=== PATIENT | male | born 1960 | race Caucasian/White ===

== ENCOUNTER 2016-12-08 09:32 | Inpatient (IN) | payer OTHER ==
[2016-12-08 10:07] VITALS: BMI 22.6
--- NOTE | 2016-12-08 10:57 | HP ---
COWS - Scale Resting Pulse: 0= [place] 80 or Below Sweatin= Chills/Flushing Restless Observation: 0= Sits Still Pupil Size: 0= Normal to Room Light Bone or Joint Aches: 1= Mild Discomfort Runny Nose/ Eye Tearin= Nasal Congestion GI Upset > 30mins: 1= Stomach Cramp Tremor Observation: 1= Tremor [place], Not Seen Yawning Observation: 1= 1-2x During Session Anxiety or Irritability: 1=Feels Anxious/Irritable Goose Flesh Skin: 0=Smooth Skin COWS Score: 7 CIWA Score - CIWA Score Nausea/Vomitin-Mild Nausea/No Vomiting Muscle Tremors: 3 Anxiety: 4-Mod. Anxious/Guarded Agitation: 1-Slight > Activity Paroxysmal Sweats: 1-Minimal Palms Moist Orientation: 1-Uncertain about Date Tacttile Disturbances: 1-Very Mild Itch/Numbness Auditory Disturbances: 1-Very Mild Visual Disturbances: 1-Very Mild Sensitivity Headache: 1-Very Mild CIWA-Ar Total Score: 15 Admission ROS [facility] - HPI Chief Complaint: I want to get off drugs, I can't get my hepatitis C treated until my urine is clean Allergies/Adverse Reactions: Allergies Allergy/AdvReac Type Severity Reaction Status Date / Time Pork/Porcine Containing Allergy Unknown NO PORK Verified 12/08/16 11:31 Products [Pork/Porcine Product Derivatives] No Known Drug Allergies Allergy Verified 12/08/16 11:31 History of Present Illness: 56 yo gentleman here for detox from opiates, benzodiazepine and alcohol - last detox at [facility] two months ago, states had overdose about a month ago, last here for detox May 2016. No seizures. States he tried subxone but never went back for dose adjustment. Exam Limitations: Clinical Condition - Ebola screening Have you traveled outside of the country in the last 21 days: No Have you had contact with anyone from an Ebola affected area: No Have you been sick,other than usual withdrawal symptoms: No Do you have a fever: No - Review of Systems Constitutional: Loss of Appetite, Changes in sleep, Weakness EENT: reports: Nose Congestion, Other (reports chewing problems due to past jaw surgery) Respiratory: reports: No Symptoms reported Cardiac: reports: No Symptoms Reported GI: reports: Nausea, Poor Appetite : reports: No Symptoms Reported Musculoskeletal: reports: Muscle Pain Integumentary: reports: No Symptoms Reported Neuro: reports: Headache Endocrine: reports: No Symptoms Reported Hematology: reports: No Symptoms Reported Psychiatric: reports: Judgement Intact, Mood/Affect Appropiate, Anxious Other Systems: Reviewed and Negative Patient History - Patient Medical History Hx Anemia: No Hx Asthma: No Hx Chronic Obstructive Pulmonary Disease (COPD): No Hx Cancer: No Hx Cardiac Disorders: No Hx Congestive Heart Failure: No Hx Hypertension: No Hx Hypercholesterolemia: No Hx Pacemaker: No HX Cerebrovascular Accident: No Hx Seizures: No Hx Dementia: No Hx Diabetes: No Hx Gastrointestinal Disorders: No Hx Liver Disease: Yes (hep C) Hx Genitourinary Disorders: No Hx Sexually Transmitted Disorders: No Hx Renal Disease (ESRD): No Hx Thyroid Disease: No Hx Human Immunodeficiency Virus (HIV): No Hx Hepatitis C: Yes (no treatment) Hx Depression: Yes (seroquel 200mg bid,celexa 20mg,abilify 10mg hs) Hx Suicide Attempt: No Hx Bipolar Disorder: Yes Hx Schizophrenia: No - Patient Surgical History Past Surgical History: Yes Hx Neurologic Surgery: No Hx Cataract Extraction: No Hx Cardiac Surgery: No Hx Lung Surgery: No Hx Breast Surgery: No Hx Breast Biopsy: No Hx Abdominal Surgery: No Hx Appendectomy: No Hx Cholecystectomy: No Hx Genitourinary Surgery: No Hx Section: No Hx Orthopedic Surgery: Yes (broken jaw-06/2011) Anesthesia Reaction: No - PPD History Previous Implant?: Yes Documented Results: Negative w/proof Date: 05/13/16 Results: 0 mm PPD to be Administered?: No - Reproductive History Patient is a Female of Child Bearing Age (11 -55 yrs old): No (male) - Smoking Cessation Smoking history: Current every day smoker Have you smoked in the past 12 months: Yes Aproximately how many cigarettes per day: 10 Cigars Per Day: 0 Hx Chewing Tobacco Use: No Initiated information on smoking cessation: Yes 'Breaking Loose' booklet given: 12/08/16 (give on floor) - Substance & Tx. History Hx Alcohol Use: Yes Hx Substance Use: Yes Substance Use Type: Alcohol, Cocaine, Heroin, Opiates, Tranquilizers Hx Substance Use Treatment: Yes (detox, rehab, hx methadone in past) - Substances Abused Heroin Route: Injection Frequency: Daily Amount used: 15 bags Age of first use: 21 Date of Last Use: 12/07/16 Alprazolam (Xanax) Route: Oral Frequency: Daily Amount used: two 4 mg sticks Age of first use: 19 Date of Last Use: 12/06/16 Non-Rx Methadone Route: Oral Frequency: 1-2 times per week Amount used: 10mg Age of first use: 29 Date of Last Use: 12/05/16 alcohol Route: Oral Frequency: 1-2 times per week Amount used: one six back 16 oz beer Age of first use: 29 Date of Last Use: 12/07/16 Family Disease History - Family Disease History Family Disease History: Diabetes: Mother (), Other: Father (living, etoh ), Mother, Brother (two living - one drinks), Sister (two living - one drinks), Son (one adult - healthy) Admission Physical Exam [facility] - Vital Signs Vital Signs: Vital Signs - 24 hr 12/08/16 10:04 Temperature 95.3 F L Pulse Rate 65 Respiratory 18 Rate Blood Pressure 152/94 - Physical General Appearance: Yes: Nourished, Appropriately Dressed, Mild Distress HEENTM: Yes: Hearing grossly Normal, Normocephalic, Normal Voice, Pharynx Normal , Other (c/o jaw misalignment due to history of surgery) Respiratory: Yes: Normal Breath Sounds, No Respiratory Distress Neck: Yes: No masses,lesions,Nodules, Supple Breast: Yes: Breast Exam Deferred Cardiology: Yes: Regular Rhythm, Bradycardia Abdominal: Yes: Flat, Soft Genitourinary: Yes: Frequency Back: Yes: Normal Inspection Extremities: Yes: Normal Inspection, Normal Range of Motion, Non-Tender Neurological: Yes: Alert, Normal Mood/Affect, Normal Response Integumentary: Yes: Normal Color, Warm, Track Gandhi (right arm - no erythema) Lymphatic: Yes: Within Normal Limits - Diagnostic (1) Alcohol dependence Current Visit: Yes Status: Chronic (2) Hepatitis C Current Visit: Yes Status: Chronic Qualifiers: Viral hepatitis chronicity: chronic Hepatic coma status: without hepatic coma Qualified Code(s): B18.2 - Chronic viral hepatitis C (3) Nicotine dependence Current Visit: Yes Status: Chronic Qualifiers: Nicotine product type: cigarettes Substance use status: uncomplicated Qualified Code(s): F17.210 - Nicotine dependence, cigarettes, uncomplicated (4) Opioid dependence with withdrawal Current Visit: Yes Status: Chronic (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 - Detox or Rehab [facility] Level of Care: Medically Managed Detox Regimen/Protocol: Methadone/Valium [facility] Breath Alcohol Content Breath Alcohol Content: 0 Urine Drug Screen - Results Drug Screen Negative: No Urine Drug Screen Results: JOSUE-Cocaine, OPI-Opiates, BZO-Benzodiazepines, MTD- Methadone
[2016-12-08] MEDS ORDERED: MAGNESIUM HYDROX 2400MG/30ML ORAL SUSPENSION 30 ML CUP PO PRN (11:07)
[2016-12-08] MEDS ORDERED: hydrOXYzine PAMOATE 50 MG CAPSULE (FP) PO PRN (11:07)
[2016-12-08] MEDS ORDERED: MAG HYDROX/AL HYDROX/SIMETH 30 ML UNIT-DOSE CUP PO PRN (11:07)
[2016-12-08] MEDS ORDERED: IBUPROFEN 400 MG TABLET (FP) PO PRN (11:07)
[2016-12-08] MEDS ORDERED: MAGNESIUM CITRATE 300 ML BOTTLE PO PRN (11:07)
[2016-12-08] MEDS ORDERED: P-EPHED 60MG/TRIPROLIDI 2.5MG TABLET PO PRN (11:07)
[2016-12-08] MEDS ORDERED: ACETAMINOPHEN 325 MG TABLET (FP) PO PRN (11:07)
[2016-12-08] MEDS ORDERED: NICOTINE POLACRILEX 4 MG GUM BUC PRN (11:07)
[2016-12-08] MEDS ORDERED: guaiFENesin/D-METHORPHAN HB 10 ML UNIT-DOSE CUPS PO PRN (11:07)
[2016-12-08] MEDS ORDERED: LOPERAMIDE HCL 2 MG CAPSULE PO PRN (11:07)
[2016-12-08] MEDS ORDERED: MENTHOL/PHENOL 1 EACH UD MM PRN (11:07)
[2016-12-08] MEDS ORDERED: METHADONE HCL 10 MG TABLET (FOR DETOX USE ONLY) PO ONE ×2 (13:00→23:00)
[2016-12-08] MEDS ORDERED: diazePAM 5 MG TABLET PO ONE (13:00)
[2016-12-08] MEDS: diazePAM 5 MG TABLET PO SCH ×2 (15:01→22:32)
[2016-12-08] MEDS: diazePAM 5 MG TABLET PO PRN (17:49)
[2016-12-08] MEDS: THIAMINE HCL 100 MG TABLET (FP) PO SCH (22:32)
[2016-12-09] MEDS: diazePAM 5 MG TABLET PO SCH ×3 (06:06→22:10)
[2016-12-09 07:33] LABS: URINE APPEARANCE CLEAR; URINE BILIRUBIN NEGATIVE (NEGATIVE); URINE BLOOD NEGATIVE (NEGATIVE); URINE COLOR YELLOW; URINE GLUCOSE (UA) NEGATIVE (NEGATIVE); URINE KETONE NEGATIVE (NEGATIVE); URINE LEUK ESTERASE NEGATIVE (NEGATIVE); URINE NITRITE NEGATIVE (NEGATIVE); URINE PROTEIN NEGATIVE (NEGATIVE); URINE UROBILINOGEN NEGATIVE mg/dL (0.2-1.0)
--- NOTE | 2016-12-09 09:15 | CONSULT ---
[facility] Psychiatric Consult - Data Date of interview: 12/09/16 Admission source: [facility] Identifying data: Mr Sesay is a 56 years old single male, father of a 32 years old son, unemployed on food [employer], homeless seeking detox treatment for alcohol, heroin, methadone and xanax Substance Abuse History: Reports history of alcohol heroin, methadone and xanax use. He started using xanax at age 19, heroin at 21, alcohol and methadone at 29 , consumes 15 bags of heroin and 8 mg of xanax daily and a 6pk of beer and 10 mg of methadone 1-2 times weekly. Last used methadone on 12/05/16, xanax on , alcohol & heroin on 12/07/16 Medical History: Significant for hepatitis c and history of surgery for fracture jaw in 2011. smokes 10 cigarettes daily Psychiatric History: Patient is an unreliable historian providing inconsistent information. Denies previous psychiatric treatment to lyric writer at this admission and to Dr Lockhart on a previous admission in May 2016. 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 These medications were ordered for him and he was discharged on them. EDGARhen seen by Dr Lockhart recently , He requested Seroquel for insomnia and Seroquel 100 mg po HS was ordered for him. Now requests Seroquel 200 mg po HS But he was told that he cannot take more than 100 mg since he has been on it since he was discharged last May. At present, reports feeling depressed and sleeping poorly Physical/Sexual Abuse/Trauma History: Denies verbal, physical or sexual abuse as wel as DV relationship Additional Comment: Reports history of multiple arrests including 2 felony convoctions. Denies being on parole/probatiom currently Mental Status Exam - Mental Status Exam Alert and Oriented to: Time, Place, Person Cognitive Function: Fair Patient Appearance: Well Groomed Mood: Depressed Affect: Appropriate Patient Behavior: Cooperative Speech Pattern: Clear Voice Loudness: Normal Thought Process: Intact Thought Disorder: Not Present Hallucinations: Denies Suicidal Ideation: Denies Homicidal Ideation: Denies Insight/Judgement: Fair Sleep: Poorly Appetite: Poor Muscle strength/Tone: Normal Gait/Station: Normal Psychiatric Findings - Problem List ([place] 1, 2,3) (1) Substance induced mood disorder Current Visit: No Status: Acute (2) Bipolar II disorder Current Visit: No Status: Ruled-out (3) Alcohol dependence Current Visit: Yes Status: Chronic (4) Opioid dependence with withdrawal Current Visit: Yes Status: Chronic (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 (6) Nicotine dependence Current Visit: Yes Status: Chronic Qualifiers: Nicotine product type: cigarettes Substance use status: uncomplicated Qualified Code(s): F17.210 - Nicotine dependence, cigarettes, uncomplicated; F17.210 - Nicotine dependence, cigarettes, uncomplicated (7) Hepatitis C Current Visit: Yes Status: Chronic Qualifiers: Viral hepatitis chronicity: chronic Hepatic coma status: without hepatic coma Qualified Code(s): B18.2 - Chronic viral hepatitis C; B18.2 - Chronic viral hepatitis C; B18.2 - Chronic viral hepatitis C; B18.2 - Chronic viral hepatitis C - Initial Treatment Plan Initial Treatment Plan: 1) Start Seroquel 100 mg po HS. 2) Continue inpatient detoxification
--- NOTE | 2016-12-09 09:59 | EKG ---
Test Reason : Blood Pressure : / mmHG Vent. Rate : 060 BPM Atrial Rate : 060 BPM P-R Int : 184 ms QRS Dur : 084 ms QT Int : 442 ms P-R-T Axes : 069 065 071 degrees QTc Int : 442 ms NORMAL SINUS RHYTHM NORMAL ECG WHEN COMPARED WITH ECG OF 11-MAY-2016 22:39, NO SIGNIFICANT CHANGE WAS FOUND Confirmed by SHAHZAD KRUEGR MD ([id number]) on 12/09/2016 9:59:18 AM Referred By: Confirmed By:SHAHZAD KRUGER MD
[2016-12-09] MEDS ORDERED: METHADONE HCL 10 MG TABLET (FOR DETOX USE ONLY) PO SCH (10:00)
[2016-12-09 10:12] LABS: MCHC 33.6 g/dl (32.0-35.9); MEAN PLT VOLUME 8.8 fl (7.5-11.1); PLATELET COUNT 195 K/MM3 (134-434); RDW 14.3 % (11.9-15.9); WHITE BLOOD COUNT 4.1 K/mm3 (4.0-10.0)
[2016-12-09 10:39] LABS: ALBUMIN 3.5 g/dl (3.4-5.0); ANION GAP 5 (8-16); CALCIUM 8.6 mg/dL (8.5-10.1); CO2 29 mmol/L (21-32); GLUCOSE,RANDOM 86 mg/dL (74-106)
[2016-12-09] MEDS: diazePAM 5 MG TABLET PO PRN (10:42)
[2016-12-09] MEDS: PRENATAL VITAMINS W/ FOLIC ACID TABLET (FP) PO SCH (10:42)
[2016-12-09 10:43] LABS: ALK PHOS 115 U/L (45-117); BILIRUBIN,TOTAL 0.6 mg/dL (0.2-1.0); SGOT/AST 35 U/L (15-37); SGPT/ALT 40 U/L (12-78); TOT PROT 7.4 g/dl (6.4-8.2)
[2016-12-09 11:26] LABS: HIV 1 & 2 AB NEGATIVE; HIV 1 AGp24 NEGATIVE
[2016-12-09] MEDS ORDERED: FLU VACCINE QUAD 60 MCG/0.5 ML (MDV 17-18) IM ONE (13:00)
--- NOTE | 2016-12-09 14:06 | PN ---
S CIWA - CIWA Score Nausea/Vomitin Muscle Tremors: 4-Moderate,w/Arms Extend Anxiety: 4-Mod. Anxious/Guarded Agitation: 4-Moderately Restless Paroxysmal Sweats: 3 Orientation: 0-Oriented Tacttile Disturbances: 1-Very Mild Itch/Numbness Auditory Disturbances: 0-None Visual Disturbances: 0-None Headache: 0-None Present CIWA-Ar Total Score: 19 S COWS - Scale Resting Pulse: 0= [place] 80 or Below Sweatin=Flushed/Facial Moisture Restless Observation: 3= Extraneous Movement Pupil Size: 0= Normal to Room Light Bone or Joint Aches: 2= Severe Diffuse Aches Runny Nose/ Eye Tearin= Runny Nose/Eyes GI Upset > 30mins: 2= Nausea/Diarrhea Tremor Observation of Outstretched Hands: 2= Slight Tremor Visible Yawning Observation: 0= None Anxiety or Irritability: 2=Irritable/Anxious Goose Flesh Skin: 0=Smooth Skin COWS Score: 15 [facility] Progress Note (SOAP) Subjective: Nausea, tremor, chills, nausea, anxious Objective: 12/09/16 14:05 Last Vital Signs Temp Pulse Resp BP Pulse Ox 97.5 F L 68 18 150/93 12/09/16 09:52 12/09/16 09:52 12/09/16 09:52 12/09/16 09:52 Laboratory Tests 12/08/16 12/09/16 12/09/16 21:45 08:00 08:00 WBC 4.1 RBC 4.36 Hgb 13.5 Hct 40.1 MCV 92.0 MCH 31.0 MCHC 33.6 RDW 14.3 Plt Count 195 MPV 8.8 Sodium 136 Potassium 4.1 Chloride 102 Carbon Dioxide 29 Anion Gap 5 L BUN 12 Creatinine 1.0 Creat Clearance w eGFR > 60 Random Glucose 86 Calcium 8.6 Total Bilirubin 0.6 D AST 35 D ALT 40 D Alkaline Phosphatase 115 Total Protein 7.4 Albumin 3.5 Urine Color Yellow Urine Appearance Clear Urine pH 6.0 D Ur Specific [place] 1.020 Urine Protein Negative Urine Glucose (UA) Negative Urine Ketones Negative Urine Blood Negative Urine Nitrite Negative Urine Bilirubin Negative Urine Urobilinogen Negative RPR Titer HIV 1&2 Antibody Screen HIV P24 Antigen 12/09/16 12/09/16 08:00 08:00 WBC RBC Hgb Hct MCV MCH MCHC RDW Plt Count MPV Sodium Potassium Chloride Carbon Dioxide Anion Gap BUN Creatinine Creat Clearance w eGFR Random Glucose Calcium Total Bilirubin AST ALT Alkaline Phosphatase Total Protein Albumin Urine Color Urine Appearance Urine pH Ur Specific [place] Urine Protein Urine Glucose (UA) Urine Ketones Urine Blood Urine Nitrite Urine Bilirubin Urine Urobilinogen RPR Titer Nonreactive HIV 1&2 Antibody Screen Negative HIV P24 Antigen Negative Labs noted Assessment: 12/09/16 14:06 Withdrawal symptoms Plan: Continue detox
[2016-12-09] MEDS ORDERED: cloNIDine HCL 0.1 MG TABLET PO PRN (14:07)
[2016-12-09] MEDS: QUEtiapine FUMARATE 100 MG TABLET (FP) PO SCH (22:10)
[2016-12-09] MEDS: THIAMINE HCL 100 MG TABLET (FP) PO SCH (22:10)
[2016-12-09] MEDS: diphenhydrAMINE HCL 50 MG CAPSULE PO PRN (22:10)
[2016-12-10] MEDS: diazePAM 5 MG TABLET PO PRN (05:48)
[2016-12-10] MEDS: PRENATAL VITAMINS W/ FOLIC ACID TABLET (FP) PO SCH (10:16)
[2016-12-10] MEDS: diazePAM 5 MG TABLET PO SCH ×2 (10:16→22:10)
[2016-12-10] MEDS: METHADONE HCL 5 MG TABLET (FOR DETOX USE ONLY) PO SCH (10:17)
--- NOTE | 2016-12-10 11:00 | PN ---
S CIWA - CIWA Score Nausea/Vomitin (N/V/D) Muscle Tremors: 4-Moderate,w/Arms Extend Anxiety: 4-Mod. Anxious/Guarded Agitation: 4-Moderately Restless Paroxysmal Sweats: 1-Minimal Palms Moist Orientation: 0-Oriented Tacttile Disturbances: 3-Moderate Itch/Numb/Burn Auditory Disturbances: 0-None Visual Disturbances: 0-None Headache: 0-None Present CIWA-Ar Total Score: 19 [facility] COWS - Scale Resting Pulse: 2= ME 101-120 Sweatin= Chills/Flushing Restless Observation: 3= Extraneous Movement Pupil Size: 0= Normal to Room Light Bone or Joint Aches: 4=Acute Joint/Muscle Pain Runny Nose/ Eye Tearin= Nasal Congestion GI Upset > 30mins: 1= Stomach Cramp Tremor Observation of Outstretched Hands: 1= Tremor [place], Not Seen Yawning Observation: 1= 1-2x During Session Anxiety or Irritability: 2=Irritable/Anxious Goose Flesh Skin: 0=Smooth Skin COWS Score: 16 S Progress Note (SOAP) Subjective: ANXIETY,TREMORS,IRRITABILITY,SWEATS,N/V/D,INTERMITTENT SLEEP. Objective: 12/10/16 10:59 Vital Signs Temperature 96.8 F L 12/10/16 06:15 Pulse Rate 102 H 12/10/16 06:15 Respiratory Rate 18 12/10/16 06:15 Blood Pressure 124/87 12/10/16 06:15 O2 Sat by Pulse Oximetry (%) Laboratory Last Values WBC 4.1 K/mm3 (4.0-10.0) 12/09/16 08:00 RBC 4.36 M/mm3 (4.00-5.60) 12/09/16 08:00 Hgb 13.5 GM/dL (11.7-16.9) 12/09/16 08:00 Hct 40.1 % (35.4-49) 12/09/16 08:00 MCV 92.0 fl (80-96) 12/09/16 08:00 MCH 31.0 pg (25.7-33.7) 12/09/16 08:00 MCHC 33.6 g/dl (32.0-35.9) 12/09/16 08:00 RDW 14.3 % (11.9-15.9) 12/09/16 08:00 Plt Count 195 K/MM3 (134-434) 12/09/16 08:00 MPV 8.8 fl (7.5-11.1) 12/09/16 08:00 Sodium 136 mmol/L (136-145) 12/09/16 08:00 Potassium 4.1 mmol/L (3.5-5.1) 12/09/16 08:00 Chloride 102 mmol/L (98-107) 12/09/16 08:00 Carbon Dioxide 29 mmol/L (21-32) 12/09/16 08:00 Anion Gap 5 (8-16) L 12/09/16 08:00 BUN 12 mg/dL (7-18) 12/09/16 08:00 Creatinine 1.0 mg/dL (0.7-1.3) 12/09/16 08:00 Creat Clearance w eGFR > 60 (>60) 12/09/16 08:00 Random Glucose 86 mg/dL (74-106) 12/09/16 08:00 Calcium 8.6 mg/dL (8.5-10.1) 12/09/16 08:00 Total Bilirubin 0.6 mg/dL (0.2-1.0) D 12/09/16 08:00 AST 35 U/L (15-37) D 12/09/16 08:00 ALT 40 U/L (12-78) D 12/09/16 08:00 Alkaline Phosphatase 115 U/L (45-117) 12/09/16 08:00 Total Protein 7.4 g/dl (6.4-8.2) 12/09/16 08:00 Albumin 3.5 g/dl (3.4-5.0) 12/09/16 08:00 Urine Color Yellow 12/08/16 21:45 Urine Appearance Clear 12/08/16 21:45 Urine pH 6.0 (5.0-8.0) D 12/08/16 21:45 Ur Specific [place] 1.020 (1.005-1.025) 12/08/16 21:45 Urine Protein Negative (NEGATIVE) 12/08/16 21:45 Urine Glucose (UA) Negative (NEGATIVE) 12/08/16 21:45 Urine Ketones Negative (NEGATIVE) 12/08/16 21:45 Urine Blood Negative (NEGATIVE) 12/08/16 21:45 Urine Nitrite Negative (NEGATIVE) 12/08/16 21:45 Urine Bilirubin Negative (NEGATIVE) 12/08/16 21:45 Urine Urobilinogen Negative mg/dL (0.2-1.0) 12/08/16 21:45 RPR Titer Nonreactive (NONREACTIVE) 12/09/16 08:00 HIV 1&2 Antibody Screen Negative 12/09/16 08:00 HIV P24 Antigen Negative 12/09/16 08:00 Assessment: 12/10/16 10:59 WITHDRAWAL SX Plan: CONTINUE DETOX IMODIUM PRN. ZOFRAN IF NEEDED.
[2016-12-10] MEDS: CYCLOBENZAPRINE HCL 10 MG TABLET (FP) PO PRN ×2 (11:45→22:11)
[2016-12-10] MEDS: cloNIDine HCL 0.1 MG TABLET PO SCH ×2 (11:45→22:11)
[2016-12-10] MEDS: THIAMINE HCL 100 MG TABLET (FP) PO SCH (22:10)
[2016-12-10] MEDS: QUEtiapine FUMARATE 100 MG TABLET (FP) PO SCH (22:11)
[2016-12-10] MEDS: diphenhydrAMINE HCL 50 MG CAPSULE PO PRN (22:11)
[2016-12-11] MEDS: CYCLOBENZAPRINE HCL 10 MG TABLET (FP) PO PRN (06:08)
[2016-12-11] MEDS: diazePAM 5 MG TABLET PO PRN (06:08)
[2016-12-11] MEDS: METHADONE HCL 5 MG TABLET (FOR DETOX USE ONLY) PO SCH (10:22)
[2016-12-11] MEDS: PRENATAL VITAMINS W/ FOLIC ACID TABLET (FP) PO SCH (10:22)
[2016-12-11] MEDS: diazePAM 5 MG TABLET PO SCH ×2 (10:22→22:23)
[2016-12-11] MEDS: cloNIDine HCL 0.1 MG TABLET PO SCH ×2 (10:22→22:24)
--- NOTE | 2016-12-11 12:34 | PN ---
[facility] Progress Note (SOAP) Subjective: ANXIETY,SWEATS,IRRITABILITY,FATIGUE. Objective: 12/11/16 12:34 Vital Signs Temperature 96.4 F L 12/11/16 09:13 Pulse Rate 92 H 12/11/16 09:13 Respiratory Rate 20 12/11/16 09:13 Blood Pressure 119/77 12/11/16 09:13 O2 Sat by Pulse Oximetry (%) Laboratory Last Values WBC 4.1 K/mm3 (4.0-10.0) 12/09/16 08:00 RBC 4.36 M/mm3 (4.00-5.60) 12/09/16 08:00 Hgb 13.5 GM/dL (11.7-16.9) 12/09/16 08:00 Hct 40.1 % (35.4-49) 12/09/16 08:00 MCV 92.0 fl (80-96) 12/09/16 08:00 MCH 31.0 pg (25.7-33.7) 12/09/16 08:00 MCHC 33.6 g/dl (32.0-35.9) 12/09/16 08:00 RDW 14.3 % (11.9-15.9) 12/09/16 08:00 Plt Count 195 K/MM3 (134-434) 12/09/16 08:00 MPV 8.8 fl (7.5-11.1) 12/09/16 08:00 Sodium 136 mmol/L (136-145) 12/09/16 08:00 Potassium 4.1 mmol/L (3.5-5.1) 12/09/16 08:00 Chloride 102 mmol/L (98-107) 12/09/16 08:00 Carbon Dioxide 29 mmol/L (21-32) 12/09/16 08:00 Anion Gap 5 (8-16) L 12/09/16 08:00 BUN 12 mg/dL (7-18) 12/09/16 08:00 Creatinine 1.0 mg/dL (0.7-1.3) 12/09/16 08:00 Creat Clearance w eGFR > 60 (>60) 12/09/16 08:00 Random Glucose 86 mg/dL (74-106) 12/09/16 08:00 Calcium 8.6 mg/dL (8.5-10.1) 12/09/16 08:00 Total Bilirubin 0.6 mg/dL (0.2-1.0) D 12/09/16 08:00 AST 35 U/L (15-37) D 12/09/16 08:00 ALT 40 U/L (12-78) D 12/09/16 08:00 Alkaline Phosphatase 115 U/L (45-117) 12/09/16 08:00 Total Protein 7.4 g/dl (6.4-8.2) 12/09/16 08:00 Albumin 3.5 g/dl (3.4-5.0) 12/09/16 08:00 Urine Color Yellow 12/08/16 21:45 Urine Appearance Clear 12/08/16 21:45 Urine pH 6.0 (5.0-8.0) D 12/08/16 21:45 Ur Specific [place] 1.020 (1.005-1.025) 12/08/16 21:45 Urine Protein Negative (NEGATIVE) 12/08/16 21:45 Urine Glucose (UA) Negative (NEGATIVE) 12/08/16 21:45 Urine Ketones Negative (NEGATIVE) 12/08/16 21:45 Urine Blood Negative (NEGATIVE) 12/08/16 21:45 Urine Nitrite Negative (NEGATIVE) 12/08/16 21:45 Urine Bilirubin Negative (NEGATIVE) 12/08/16 21:45 Urine Urobilinogen Negative mg/dL (0.2-1.0) 12/08/16 21:45 RPR Titer Nonreactive (NONREACTIVE) 12/09/16 08:00 HIV 1&2 Antibody Screen Negative 12/09/16 08:00 HIV P24 Antigen Negative 12/09/16 08:00 Assessment: 12/11/16 12:34 WITHDRAWAL SX Plan: CONTINUE DETOX
[2016-12-11] MEDS: diphenhydrAMINE HCL 50 MG CAPSULE PO PRN (22:24)
[2016-12-11] MEDS: QUEtiapine FUMARATE 100 MG TABLET (FP) PO SCH (22:24)
[2016-12-11] MEDS: THIAMINE HCL 100 MG TABLET (FP) PO SCH (22:24)
[2016-12-12] MEDS ORDERED: METHADONE HCL 10 MG TABLET (FOR DETOX USE ONLY) PO SCH (10:00)
[2016-12-12] MEDS ORDERED: diazePAM 5 MG TABLET PO SCH (10:00)
[2016-12-12] MEDS: PRENATAL VITAMINS W/ FOLIC ACID TABLET (FP) PO SCH (10:30)
[2016-12-12] MEDS: cloNIDine HCL 0.1 MG TABLET PO SCH ×2 (10:30→22:22)
--- NOTE | 2016-12-12 12:37 | PN ---
[facility] Progress Note (SOAP) Subjective: C/O INTERMITTENT SLEEP AND FATIGUE. Objective: 12/12/16 12:36 Vital Signs Temperature 96.7 F L 12/12/16 09:23 Pulse Rate 88 12/12/16 09:23 Respiratory Rate 20 12/12/16 09:23 Blood Pressure 133/69 12/12/16 09:23 O2 Sat by Pulse Oximetry (%) Laboratory Last Values WBC 4.1 K/mm3 (4.0-10.0) 12/09/16 08:00 RBC 4.36 M/mm3 (4.00-5.60) 12/09/16 08:00 Hgb 13.5 GM/dL (11.7-16.9) 12/09/16 08:00 Hct 40.1 % (35.4-49) 12/09/16 08:00 MCV 92.0 fl (80-96) 12/09/16 08:00 MCH 31.0 pg (25.7-33.7) 12/09/16 08:00 MCHC 33.6 g/dl (32.0-35.9) 12/09/16 08:00 RDW 14.3 % (11.9-15.9) 12/09/16 08:00 Plt Count 195 K/MM3 (134-434) 12/09/16 08:00 MPV 8.8 fl (7.5-11.1) 12/09/16 08:00 Sodium 136 mmol/L (136-145) 12/09/16 08:00 Potassium 4.1 mmol/L (3.5-5.1) 12/09/16 08:00 Chloride 102 mmol/L (98-107) 12/09/16 08:00 Carbon Dioxide 29 mmol/L (21-32) 12/09/16 08:00 Anion Gap 5 (8-16) L 12/09/16 08:00 BUN 12 mg/dL (7-18) 12/09/16 08:00 Creatinine 1.0 mg/dL (0.7-1.3) 12/09/16 08:00 Creat Clearance w eGFR > 60 (>60) 12/09/16 08:00 Random Glucose 86 mg/dL (74-106) 12/09/16 08:00 Calcium 8.6 mg/dL (8.5-10.1) 12/09/16 08:00 Total Bilirubin 0.6 mg/dL (0.2-1.0) D 12/09/16 08:00 AST 35 U/L (15-37) D 12/09/16 08:00 ALT 40 U/L (12-78) D 12/09/16 08:00 Alkaline Phosphatase 115 U/L (45-117) 12/09/16 08:00 Total Protein 7.4 g/dl (6.4-8.2) 12/09/16 08:00 Albumin 3.5 g/dl (3.4-5.0) 12/09/16 08:00 Urine Color Yellow 12/08/16 21:45 Urine Appearance Clear 12/08/16 21:45 Urine pH 6.0 (5.0-8.0) D 12/08/16 21:45 Ur Specific [place] 1.020 (1.005-1.025) 12/08/16 21:45 Urine Protein Negative (NEGATIVE) 12/08/16 21:45 Urine Glucose (UA) Negative (NEGATIVE) 12/08/16 21:45 Urine Ketones Negative (NEGATIVE) 12/08/16 21:45 Urine Blood Negative (NEGATIVE) 12/08/16 21:45 Urine Nitrite Negative (NEGATIVE) 12/08/16 21:45 Urine Bilirubin Negative (NEGATIVE) 12/08/16 21:45 Urine Urobilinogen Negative mg/dL (0.2-1.0) 12/08/16 21:45 RPR Titer Nonreactive (NONREACTIVE) 12/09/16 08:00 HIV 1&2 Antibody Screen Negative 12/09/16 08:00 HIV P24 Antigen Negative 12/09/16 08:00 Assessment: 12/12/16 12:36 WITHDRAWAL SX Plan: CONTINUE DETOX BENADRYL PRN DIRECTED.
[2016-12-12] MEDS: THIAMINE HCL 100 MG TABLET (FP) PO SCH (22:22)
[2016-12-12] MEDS: QUEtiapine FUMARATE 100 MG TABLET (FP) PO SCH (22:22)
[2016-12-12] MEDS: CYCLOBENZAPRINE HCL 10 MG TABLET (FP) PO PRN (22:22)
[2016-12-12] MEDS: diphenhydrAMINE HCL 50 MG CAPSULE PO PRN (22:22)
--- NOTE | 2016-12-12 23:23 | PN ---
[facility] Progress Note Note: RECEIVED NURSE CALL THAT THE PATIENT REFUSES VITAL SIGNS CONTINUE DETOX
[2016-12-13] MEDS ORDERED: METHADONE HCL 5 MG TABLET (FOR DETOX USE ONLY) PO SCH (06:00)
[2016-12-13 06:55] VITALS: BP 128/85; PULSE 68; TEMP 97.3
--- NOTE | 2016-12-13 13:09 | DS ---
[facility] Detox Discharge Summary Admission Date: 12/08/16 Discharge Date: 12/13/16 - History Present History: Alcohol Dependence, Opioid Dependence, Sedative Dependence Additional Comments: DETOX COMPLETED. PT IS ALERT AND ORIENTED X 3. NAD. ENCOURAGED TO FOLLOW UP WITH PMD FOR MEDICAL MANAGEMENT AND AFTER CARE PLAN AT [facility] (OUT PT.) REHAB - Physical Exam Results Vital Signs: Vital Signs Temperature 97.3 F L 12/13/16 06:54 Pulse Rate 68 12/13/16 06:54 Respiratory Rate 16 12/13/16 06:54 Blood Pressure 128/85 12/13/16 06:54 O2 Sat by Pulse Oximetry (%) Laboratory Last Values WBC 4.1 K/mm3 (4.0-10.0) 12/09/16 08:00 RBC 4.36 M/mm3 (4.00-5.60) 12/09/16 08:00 Hgb 13.5 GM/dL (11.7-16.9) 12/09/16 08:00 Hct 40.1 % (35.4-49) 12/09/16 08:00 MCV 92.0 fl (80-96) 12/09/16 08:00 MCH 31.0 pg (25.7-33.7) 12/09/16 08:00 MCHC 33.6 g/dl (32.0-35.9) 12/09/16 08:00 RDW 14.3 % (11.9-15.9) 12/09/16 08:00 Plt Count 195 K/MM3 (134-434) 12/09/16 08:00 MPV 8.8 fl (7.5-11.1) 12/09/16 08:00 Sodium 136 mmol/L (136-145) 12/09/16 08:00 Potassium 4.1 mmol/L (3.5-5.1) 12/09/16 08:00 Chloride 102 mmol/L (98-107) 12/09/16 08:00 Carbon Dioxide 29 mmol/L (21-32) 12/09/16 08:00 Anion Gap 5 (8-16) L 12/09/16 08:00 BUN 12 mg/dL (7-18) 12/09/16 08:00 Creatinine 1.0 mg/dL (0.7-1.3) 12/09/16 08:00 Creat Clearance w eGFR > 60 (>60) 12/09/16 08:00 Random Glucose 86 mg/dL (74-106) 12/09/16 08:00 Calcium 8.6 mg/dL (8.5-10.1) 12/09/16 08:00 Total Bilirubin 0.6 mg/dL (0.2-1.0) D 12/09/16 08:00 AST 35 U/L (15-37) D 12/09/16 08:00 ALT 40 U/L (12-78) D 12/09/16 08:00 Alkaline Phosphatase 115 U/L (45-117) 12/09/16 08:00 Total Protein 7.4 g/dl (6.4-8.2) 12/09/16 08:00 Albumin 3.5 g/dl (3.4-5.0) 12/09/16 08:00 Urine Color Yellow 12/08/16 21:45 Urine Appearance Clear 12/08/16 21:45 Urine pH 6.0 (5.0-8.0) D 12/08/16 21:45 Ur Specific Mason 1.020 (1.005-1.025) 12/08/16 21:45 Urine Protein Negative (NEGATIVE) 12/08/16 21:45 Urine Glucose (UA) Negative (NEGATIVE) 12/08/16 21:45 Urine Ketones Negative (NEGATIVE) 12/08/16 21:45 Urine Blood Negative (NEGATIVE) 12/08/16 21:45 Urine Nitrite Negative (NEGATIVE) 12/08/16 21:45 Urine Bilirubin Negative (NEGATIVE) 12/08/16 21:45 Urine Urobilinogen Negative mg/dL (0.2-1.0) 12/08/16 21:45 RPR Titer Nonreactive (NONREACTIVE) 12/09/16 08:00 HIV 1&2 Antibody Screen Negative 12/09/16 08:00 HIV P24 Antigen Negative 12/09/16 08:00 LABS REVIEWED Pertinent Admission Physical Exam Findings: WITHDRAWAL SX - Treatment Hospital Course: Detox Protocol Followed, Detoxed Safely, Responded well, Discharged Condition Good Patient has Accepted a Rehab Referral to: PT WILL FOLLOW UP WITH [facility] (OUTPT) REHAB - Medication Discharge Medications: Ambulatory Orders Quetiapine Fumarate [Seroquel] 100 mg PO HS #30 tablet 12/09/16 - Diagnosis (1) Alcohol dependence with uncomplicated withdrawal Status: Acute (2) Bipolar depression Status: Chronic (3) Insomnia Status: Acute Qualifiers: Insomnia type: alcohol-induced Qualified Code(s): F10.982 - Alcohol use, unspecified with alcohol-induced sleep disorder; F10.982 - Alcohol use, unspecified with alcohol-induced sleep disorder; F10.982 - Alcohol use, unspecified with alcohol-induced sleep disorder (4) Nicotine dependence Status: Acute Qualifiers: Nicotine product type: cigarettes Substance use status: in withdrawal Qualified Code(s): F17.213 - Nicotine dependence, cigarettes, with withdrawal; F17.213 - Nicotine dependence, cigarettes, with withdrawal (5) Opioid dependence with withdrawal Status: Acute (6) Sedative, hypnotic or anxiolytic dependence with withdrawal, uncomplicated Status: Acute (7) Substance induced mood disorder Status: Acute (8) Weight loss Status: Acute (9) Hepatitis C Status: Chronic Qualifiers: Viral hepatitis chronicity: chronic Hepatic coma status: without hepatic coma Qualified Code(s): B18.2 - Chronic viral hepatitis C; B18.2 - Chronic viral hepatitis C; B18.2 - Chronic viral hepatitis C; B18.2 - Chronic viral hepatitis C - AMA Did Patient Leave Against Medical Advice: No
== END 2016-12-13 08:54 | disposition home or self-care (01) | DRG 773 ==
LOC: YASAS 09:32 → Y3N 11:55
PROVIDERS: ADMIT Internal Medicine; ATTEND Internal Medicine
PROC: HZ2ZZZZ Detoxification Services for Substance Abuse Treatment (ICD-10-PCS; principal; 2016-12-08)
DX: F11.23 Opioid dependence with withdrawal (principal); F13.230 Sedative, hypnotic or anxiolytic dependence with withdrawal, uncomplicated; F10.230 Alcohol dependence with withdrawal, uncomplicated; F10.282 Alcohol dependence with alcohol-induced sleep disorder; F17.213 Nicotine dependence, cigarettes, with withdrawal; F31.81 Bipolar II disorder; F19.24 Other psychoactive substance dependence with psychoactive substance-induced mood disorder; R00.1 Bradycardia, unspecified; B18.2 Chronic viral hepatitis C; Z91.018 Allergy to other foods; Z87.898 Personal history of other specified conditions; Z59.0 Homelessness
CPT/HCPCS: 36415; 80053; 81003; 85027; 86593; 87389; 93005; 93010